=== PATIENT | male | born 1945 ===

== ENCOUNTER 2020-09-27 12:51 | Emergency (ER) | payer OTHER ==
[~2020-09-27] VITALS: Ht 175.3 cm; Wt 73.5 kg
[2020-09-27] MEDS ORDERED: FORTAMET500 MG PO (13:23)
[2020-09-27] MEDS ORDERED: LOSARTAN POTASS50 MG PO (13:24)
[2020-09-27] MEDS ORDERED: SINGULAIR10 MG PO (13:24)
[2020-09-27] MEDS ORDERED: ATORVASTATIN CA40 MG PO (13:25)
[2020-09-27] MEDS ORDERED: ADULT ASPIRIN R81 MG PO (13:25)
[2020-09-27] MEDS ORDERED: TENORMIN25 MG PO (13:26)
[2020-09-27] MEDS ORDERED: VITAMIN C1000 MG PO (13:26)
== END 2020-09-27 20:14 | disposition home or self-care (01) ==
LOC: ER 12:51 → EDBD 13:13 → ER 20:14
DX: B36.0 Pityriasis versicolor (principal); L29.8 Other pruritus; R06.02 Shortness of breath; R10.84 Generalized abdominal pain; T37.5X5A Adverse effect of antiviral drugs, initial encounter; T38.0X5A Adverse effect of glucocorticoids and synthetic analogues, initial encounter; Y92.89 Other specified places as the place of occurrence of the external cause